=== PATIENT | female | born 1960 | race Caucasian/White ===

== ENCOUNTER 2017-04-14 09:20 | Outpatient (CLI) | payer OTHER | END 2017-04-14 11:20 | disposition home or self-care (01) | LOC: ECT 09:20 | DX: F33.2 Major depressive disorder, recurrent severe without psychotic features (principal); F34.1 Dysthymic disorder; Z88.0 Allergy status to penicillin; Z91.5 Personal history of self-harm; F41.9 Anxiety disorder, unspecified; R45.851 Suicidal ideations ==